=== PATIENT | female | born 1960 | race Caucasian/White ===

== ENCOUNTER 2019-05-16 15:28 | Emergency (ER) | payer OTHER ==
[~2019-05-16] VITALS: Ht 157.5 cm; Wt 99.8 kg
[~2019-05-16 15:28] MED LIST: ACCUPRIL; ACCUPRIL40 MG PO; ACETAMINOPHEN650 M5 PO; AMLODIPINE BESYL5 M1 PO; ASPIR 8181 MG PO; ASPIRIN325 PO; CALCIUM; CALCIUM OYSTER500 MG PO; CELEXA20 MG PO; COMPLEX; DOXYCYCLINE 10100 MG PO; IMDUR 30 MG TAB30 M1 PO; LIPITOR40 MG PO; MULTIVITAMINS PO; NITROGLYCERIN0.4 MG SUBLING; OMEPRAZOLE 20 M20 M1 PO; PLAVIX 75 MG TA75 M1 PO; QUINU10 PD PO; TESSALON PERLE100 MG PO; TOPROL XL25 MG PO; TRICOR145 MG PO; TRILIPIX135 MG PO; VITAMIN E400 UNIT PO; VITAMIN E600 UNIT PO; VITAMINC500 PO; [UNRECOGNIZED DRUG - OTHER]; triglyceride med
[2019-05-16 15:44] VITALS: BP 118/75
[2019-05-16] MEDS ORDERED: ZETIA10 MG PO (15:53)
[2019-05-16 16:37] LABS: ABSOLUTE NEUTROPHILS 3.1 thou/uL (1.4-8.2); BASOPHILS 1.1 % (0.0-2.0); EOSINOPHILS 1.6 % (0.0-3.0); HEMATOCRIT 42.9 % (37.0-47.0); HEMOGLOBIN 14.7 gm/dL (12.0-15.0); LYMPHOCYTES 40.2 % (24.0-44.0); MCH 32.4 pg (26.0-34.0); MCHC 34.2 g/dL (28.0-37.0); MONOCYTES 8.8 % (1.0-8.0); PLATELET COUNT 208 thou/uL (150-400); POLYS 48.3 % (36.0-66.0); RBC 4.52 mil/uL (4.20-5.00); RDW 13.4 % (10.5-14.5); WBC 6.4 thou/uL (4.0-11.0)
[2019-05-16 16:45] LABS: ANION GAP 9 mmol/L (7-16); BUN 16 mg/dL (7-18); CALCIUM 9.3 mg/dL (8.5-10.1); CHLORIDE 106 mmol/L (98-107); CO2 27 mmol/L (21-32); CREATININE 0.8 mg/dL (0.6-1.0); GLUCOSE 113 mg/dL (74-106); POTASSIUM 4.3 mmol/L (3.5-5.1); SODIUM 142 mmol/L (136-145)
[2019-05-16 16:48] LABS: AMP/METHAMP Negative (Negative); BARBITURATES Negative (Negative); BENZODIAZEPINES Negative (Negative); COCAINE Negative (Negative); METHADONE Negative (Negative); OPIATES Negative (Negative); PCP Negative (Negative)
[2019-05-16 16:51] LABS: APTT 27.5 Seconds (24.5-32.8)
[2019-05-16 16:56] LABS: ALBUMIN 3.8 g/dL (3.4-5.0); MAGNESIUM 1.9 mg/dL (1.8-2.4); SGOT 33 U/L (15-37); SGPT 46 U/L (30-65); TOTAL BILIRUBIN 0.5 mg/dL (<0.1-1.0); TOTAL PROTEIN 6.9 g/dL (6.4-8.2); TROPONIN-I <0.06 ng/mL (<0.06)
--- NOTE | 2019-05-16 20:20 | NUR ---
PATIENT HAS DECIDED TO GO HOME TONIGHT RATHER THAN BE MADE INPATIENT. SHE HAS AN APPOINTMENT WITH DR ENNIS 1 WEEK FROM NOW ON SATURDAY. AMA PAPERWORK SIGNED.
[2019-05-16 20:28] VITALS: BP 108/65
--- NOTE | 2019-05-17 11:52 | EKG ---
[address] [place] [address] ELECTROCARDIOGRAM REPORT Name: JOHNNYMAUREEN Room #: 170-5 ADM IN M.R.#: [id number] ������������������ Admission: 05/16/19 ������������������ Attend Phys: Donald Rider MD Discharge: ������������������ Date of : 64 Report #: [id number] ����������������������������������������������������������������� [id number] THIS REPORT FOR: //name// [facility] ED Test Date: 2019-05-16 Test Time: 15:37:00 Pat Name: MAUREEN TURNER Department: Room: 170 Gender: F [employer]: PAN : 1960 Requested By: Eddie Hyde Order Number: [id number] MD: Tay Boyle Measurements Intervals [place] Rate: 93 P: 54 RI: 140 QRS: -7 QRSD: 81 T: 26 QT: 357 QTc: 445 Interpretive Statements Sinus rhythm Probable left atrial enlargement Compared to ECG 09/05/2015 19:08:08 Myocardial infarct finding no longer present T-wave abnormality no longer present Possible ischemia no longer present Electronically Signed On 05-17-2019 11:52:25 CDT by Tay Boyle [email or web address] ��������������������������������������������� <ELECTRONICALLY SIGNED> ���������������������������������������� By: Tay Boyle MD ��������������������������������������������� 05/17/19 1152 [id number] 153 Tay Boyle MD /LANE
== END 2019-05-16 20:28 | disposition left against medical advice (07) ==
LOC: ER 15:28 → EROBS 17:07 → ER 17:07 → EROBS 20:28
PROVIDERS: Emergency Medicine
DX: I25.10 Atherosclerotic heart disease of native coronary artery without angina pectoris (principal); M43.6 Torticollis; I21.9 Acute myocardial infarction, unspecified; F17.210 Nicotine dependence, cigarettes, uncomplicated; Z90.710 Acquired absence of both cervix and uterus; Z95.5 Presence of coronary angioplasty implant and graft

== ENCOUNTER → 2021-11-28 | Outpatient (CLI) | payer OTHER ==
[~2021-11-28] MED LIST changes: +ZETIA10 MG PO
== END ==
LOC: SJCVCIMAG 10:09
PROVIDERS: ATTEND Internal Medicine Cardiovascular Disease
DX: I49.1 Atrial premature depolarization (principal); I49.3 Ventricular premature depolarization; I25.10 Atherosclerotic heart disease of native coronary artery without angina pectoris; F17.200 Nicotine dependence, unspecified, uncomplicated; E78.5 Hyperlipidemia, unspecified; I10 Essential (primary) hypertension; Z95.2 Presence of prosthetic heart valve